=== PATIENT | female | born 1995 | race Caucasian/White ===

== ENCOUNTER → 2021-09-19 | Outpatient (CLI) | payer OTHER ==
[2021-09-19 17:08] LABS: HEMATOCRIT 34.1 % (36.0-47.0); HEMOGLOBIN 11.2 g/dl (12.0-15.5); MEAN CORPUSCULAR HGB CONC 32.8 g/dl (32.0-36.5); MEAN CORPUSCULAR VOLUME 88.3 fl (80.0-96.0); PLATELET COUNT, AUTOMATED 287 10^3/uL (150-450); RED BLOOD COUNT 3.86 10^6/uL (4.00-5.40); WHITE BLOOD COUNT 9.2 10^3/uL (4.0-10.0)
[2021-09-19 17:58] LABS: HEPATITIS C VIRUS ABY INDEX 0.1 INDEX (<0.8); HIV 1&2 SCREEN CENTAUR NEGATIVE (NEGATIVE)
[2021-09-19 18:49] LABS: GC DNA AMPLIFICATION NEGATIVE (NEGATIVE)
== END ==
LOC: M PLALAB 14:54
PROVIDERS: ATTEND Obstetrics & Gynecology
DX: Z34.91 Encounter for supervision of normal pregnancy, unspecified, first trimester (principal); Z3A.00 Weeks of gestation of pregnancy not specified

== ENCOUNTER → 2021-10-02 | Outpatient (REF) | payer OTHER | LOC: M SFHCWAGY 16:49 | PROVIDERS: ATTEND Obstetrics & Gynecology | DX: Z34.91 Encounter for supervision of normal pregnancy, unspecified, first trimester (principal) ==

== ENCOUNTER → 2021-10-20 | Outpatient (CLI) | payer OTHER | LOC: M PLALAB 14:45 | PROVIDERS: ATTEND Obstetrics & Gynecology | DX: Z34.82 Encounter for supervision of other normal pregnancy, second trimester (principal); Z3A.00 Weeks of gestation of pregnancy not specified | CPT/HCPCS: 36415; G0463 ==

== ENCOUNTER → 2021-12-04 | Outpatient (CLI) | payer OTHER | LOC: M WHC 13:23 | PROVIDERS: ATTEND Advanced Practice Midwife | DX: Z36.3 Encounter for antenatal screening for malformations (principal); Z3A.19 19 weeks gestation of pregnancy ==

== ENCOUNTER → 2022-03-16 | Outpatient (CLI) | payer OTHER | LOC: M WHC 14:20 | PROVIDERS: ATTEND Obstetrics & Gynecology | DX: O26.849 Uterine size-date discrepancy, unspecified trimester (principal); Z3A.34 34 weeks gestation of pregnancy ==

== ENCOUNTER → 2022-03-29 | Outpatient (REF) | payer OTHER | LOC: M SFHCWAGY 17:05 | PROVIDERS: ATTEND Specialist | DX: Z36.89 Encounter for other specified antenatal screening (principal) ==

== ENCOUNTER 2022-04-13 15:02 | Outpatient (CLI) | payer OTHER ==
[~2022-04-13] VITALS: Ht 167.6 cm; Wt 63.5 kg
[2022-04-13 15:17] VITALS: BP 138/89
[2022-04-13] MEDS ORDERED: PRENTAB9 PO (15:30)
[2022-04-13 15:52] VITALS: BP 130/87
[2022-04-13 16:31] LABS: CREATININE,RANDOM URINE 60.9 MG/DL; TOTAL PROTEIN,RANDOM URINE 20.1 MG/DL (0.0-12.0)
[2022-04-13 16:46] LABS: HEMATOCRIT 28.4 % (36.0-47.0); HEMOGLOBIN 9.3 g/dl (12.0-15.5); MEAN CORPUSCULAR HEMOGLOBIN 29.4 pg (27.0-33.0); MEAN CORPUSCULAR HGB CONC 32.7 g/dl (32.0-36.5); MEAN CORPUSCULAR VOLUME 89.9 fl (80.0-96.0); PLATELET COUNT, AUTOMATED 271 10^3/uL (150-450); RED BLOOD COUNT 3.16 10^6/uL (4.00-5.40); WHITE BLOOD COUNT 7.1 10^3/uL (4.0-10.0)
[2022-04-13 16:52] VITALS: BP 135/86
[2022-04-13 17:15] LABS: ALBUMIN 2.8 GM/DL (3.2-5.2); ALT/SGPT 11 U/L (12-78); BILIRUBIN,TOTAL 0.2 MG/DL (0.2-1.0); BLOOD UREA NITROGEN 11 MG/DL (7-18); CALCIUM LEVEL 8.7 MG/DL (8.5-10.1); CARBON DIOXIDE LEVEL 23 MEQ/L (21-32); CHLORIDE LEVEL 104 MEQ/L (98-107); CREATININE FOR GFR 0.62 MG/DL (0.55-1.30); GLOMERULAR FILTRATION RATE > 60.0 (>60); GLUCOSE, FASTING 73 MG/DL (70-100); LDH LACTATE DEHYDROGENASE 120 U/L (84-246); POTASSIUM SERUM 4.1 MEQ/L (3.5-5.1); SODIUM LEVEL 136 MEQ/L (136-145); TOTAL PROTEIN 6.4 GM/DL (6.4-8.2); URIC ACID 4.5 MG/DL (2.6-6.0)
== END 2022-04-13 17:34 | disposition home or self-care (01) ==
LOC: M LDO 15:02
PROVIDERS: ATTEND Obstetrics & Gynecology
DX: O16.3 Unspecified maternal hypertension, third trimester (principal); Z3A.38 38 weeks gestation of pregnancy
CPT/HCPCS: 36415; 59025; 80053; 82570; 83615; 84156; 84550; 85027; G0463

== ENCOUNTER 2022-04-20 15:06 | Inpatient (IN) | payer OTHER ==
[2022-04-20] VITALS (18 sets, daily range): BP systolic 134–174; BP diastolic 74–100
[~2022-04-20] VITALS: Ht 167.6 cm; Wt 63.0 kg
[~2022-04-20 15:06] MED LIST: PRENTAB9 PO
[2022-04-20] MEDS ORDERED: TRANEXAMIC ACID INJection 1,000 MG in NS 100 ML IV PRN (16:00)
[2022-04-20] MEDS ORDERED: CARBOPROST TROMETHAMINE 250 MCG/ML AMP IM PRN (16:00)
[2022-04-20] MEDS ORDERED: LIDOCAINE 1% MDV 20ML VIAL INFIL PRN (16:00)
[2022-04-20] MEDS ORDERED: OXYTOCIN INJ 10 UNITS/ML VIAL (J2590) IM PRN (16:00)
[2022-04-20] MEDS ORDERED: OXYTOCIN INJ 10 UNITS/ML VIAL (J2590) IV PRN (16:00)
[2022-04-20] MEDS ORDERED: METHYLERGONOVINE MALEATE 0.2 MG/ML VIAL (J2210) IM PRN (16:00)
[2022-04-20 16:51] LABS: BASO % 0.3 % (0.0-1.0); EOS # 0.1 10^3/uL (0.0-0.5); HEMATOCRIT 31.8 % (36.0-47.0); LYMPH # 1.8 10^3/uL (1.5-5.0); LYMPH % 20.4 % (24.0-44.0); MEAN CORPUSCULAR HEMOGLOBIN 28.9 pg (27.0-33.0); MEAN CORPUSCULAR HGB CONC 31.4 g/dl (32.0-36.5); MEAN CORPUSCULAR VOLUME 91.9 fl (80.0-96.0); MONO # 0.4 10^3/uL (0.0-0.8); MONO % 4.8 % (2.0-8.0); NEUTROPHILS # 6.5 10^3/uL (1.5-8.5); NEUTROPHILS % 73.2 % (36.0-66.0); PLATELET COUNT, AUTOMATED 244 10^3/uL (150-450); RED BLOOD COUNT 3.46 10^6/uL (4.00-5.40); WHITE BLOOD COUNT 8.8 10^3/uL (4.0-10.0)
[2022-04-20 17:48] LABS: TOTAL PROTEIN,RANDOM URINE 87.3 MG/DL (0.0-12.0)
[2022-04-20 18:12] LABS: ALT/SGPT 12 U/L (12-78); BILIRUBIN,TOTAL 0.1 MG/DL (0.2-1.0); CREATININE FOR GFR 0.67 MG/DL (0.55-1.30); GLOMERULAR FILTRATION RATE > 60.0 (>60); LDH LACTATE DEHYDROGENASE 164 U/L (84-246); URIC ACID 5.1 MG/DL (2.6-6.0)
[2022-04-20] MEDS ORDERED: miSOPROStol 50MCG 1/2 TABLET PO SCH (19:30)
[2022-04-20] MEDS ORDERED: SODIUM CHLORIDE 0.9% 1000ML IV ONE (19:30)
[2022-04-21] VITALS (27 sets, daily range): BP systolic 110–172; BP diastolic 69–94
[2022-04-21] MEDS ORDERED: ONDANSETRON 4MG 2ML VIAL IV PRN (01:45)
[2022-04-21] MEDS ORDERED: NALOXONE INJ 0.4MG/1ML VIAL (J2310 PER 1MG) IV PRN (01:45)
[2022-04-21] MEDS ORDERED: NS 500 ML IV PRN (01:45)
[2022-04-21] MEDS ORDERED: ePHEDrine SULFATE 25 MG/5 ML(5MG/ML) SYRINGE IVP PRN (01:45)
[2022-04-21] MEDS ORDERED: diphenhydrAMINE 50MG/ML VIAL (J1200) IV PRN (01:45)
[2022-04-21] MEDS ORDERED: EPIDURAL/PCA KEYS XX PRN (01:45)
[2022-04-21] MEDS ORDERED: FENTANYL/ROPIVACAINE/NACL BAG 100 ML EPIDURAL SCH (01:45)
[2022-04-21] MEDS ORDERED: OXYTOCIN 30 UNITS IN 0.9% NaCl 500ML IV BAG (J2590) As Ordered ONE (03:59)
[2022-04-21] MEDS ORDERED: OXYTOCIN DRIP 30 UNITS in IV 1 EA IV PRN (05:30)
[2022-04-21] MEDS ORDERED: RHOGAM 300 MCG (1500 IU) INJ (J2790) IM SCH (06:30)
[2022-04-21] MEDS ORDERED: ACETAMINOPHEN TAB 650MG DOSE (2X325MG) PO PRN (06:30)
[2022-04-21] MEDS ORDERED: IBUPROFEN 800 MG TAB PO PRN (06:30)
[2022-04-21] MEDS ORDERED: IBUPROFEN 600MG TAB PO PRN (06:30)
[2022-04-21] MEDS ORDERED: ACETAMINOPHEN 500 MG TAB PO PRN (06:30)
[2022-04-21] MEDS ORDERED: DOCUSATE SODIUM 100MG CAPSULE PO PRN (06:30)
[2022-04-21] MEDS ORDERED: METHYLERGONOVINE MALEATE 0.2 MG TAB PO PRN (06:30)
[2022-04-21 06:49] LABS: CORD GAS HCO3 A 24.6 MEQ/L; CORD GAS O2 SAT A 15.8 %; CORD GAS PCO2 A 63.6 mmHg; CORD GAS PH A 7.205 UNITS; CORD GAS PO2 A 12.4 mmHg; CORD GAS SBC A 18.3 MEQ/L; CORD GAS TCO2 A 26.5 MEQ/L
[2022-04-21 06:50] LABS: CORD GAS ABE V -5.7; CORD GAS HCO3 V 20.8 MEQ/L; CORD GAS O2 SAT V 57.7 %; CORD GAS PCO2 V 44.2 mmHg; CORD GAS PH V 7.291 UNITS; CORD GAS PO2 V 25.2 mmHg; CORD GAS SBC V 18.8 MEQ/L; CORD GAS TCO2 V 22.2 MEQ/L
[2022-04-21] MEDS: DIBUCAINE 1% OINTMENT 30GM TOP PRN (14:33)
[2022-04-21] MEDS: PRENATAL VITAMINS CHEWABLE TABLET PO SCH (14:39)
[2022-04-21] MEDS: [UNRECOGNIZED DRUG - OTHER] PO PRN ×2 (14:41→21:05)
[2022-04-22] MEDS: [UNRECOGNIZED DRUG - OTHER] PO PRN ×3 (05:36→20:02)
[2022-04-22 05:55] VITALS: BP 132/85
[2022-04-22 07:04] LABS: HEMATOCRIT 22.6 % (36.0-47.0); MEAN CORPUSCULAR HEMOGLOBIN 29.4 pg (27.0-33.0); MEAN CORPUSCULAR HGB CONC 32.3 g/dl (32.0-36.5); MEAN CORPUSCULAR VOLUME 91.1 fl (80.0-96.0); PLATELET COUNT, AUTOMATED 195 10^3/uL (150-450); RED BLOOD COUNT 2.48 10^6/uL (4.00-5.40); WHITE BLOOD COUNT 11.7 10^3/uL (4.0-10.0)
[2022-04-22 07:08] LABS: HEMOGLOBIN 7.3 g/dl (12.0-15.5)
[2022-04-22 07:27] LABS: ALT/SGPT 12 U/L (12-78); BILIRUBIN,TOTAL 0.1 MG/DL (0.2-1.0); CREATININE FOR GFR 0.68 MG/DL (0.55-1.30); GLOMERULAR FILTRATION RATE > 60.0 (>60); LDH LACTATE DEHYDROGENASE 143 U/L (84-246); URIC ACID 4.9 MG/DL (2.6-6.0)
[2022-04-22] MEDS: PRENATAL VITAMINS CHEWABLE TABLET PO SCH (09:00)
[2022-04-22 18:00] VITALS: BP 146/93
[2022-04-23] MEDS: [UNRECOGNIZED DRUG - OTHER] PO PRN (04:49)
[2022-04-23 07:00] VITALS: BP 142/89
[2022-04-23] MEDS: PRENATAL VITAMINS CHEWABLE TABLET PO SCH (07:45)
[2022-04-23 08:30] LABS: HEMATOCRIT 21.9 % (36.0-47.0); MEAN CORPUSCULAR HGB CONC 31.5 g/dl (32.0-36.5); PLATELET COUNT, AUTOMATED 214 10^3/uL (150-450); RED BLOOD COUNT 2.38 10^6/uL (4.00-5.40); WHITE BLOOD COUNT 11.5 10^3/uL (4.0-10.0)
[2022-04-23 08:33] LABS: HEMOGLOBIN 6.9 g/dl (12.0-15.5)
[2022-04-23] MEDS ORDERED: MEASLES,MUMPS,RUBELLA VACCINE INJ (MMR-II) (90707) SC.IMMUN ONE (09:00)
[2022-04-23] MEDS ORDERED: LABETALOL 200 MG TAB PO ONE (09:45)
[2022-04-23] MEDS ORDERED: NIFEdipine 30 MG XL TAB PO STA (11:14)
[2022-04-23 11:40] VITALS: BP 141/86
[2022-04-23 13:59] VITALS: BP 138/82
[2022-04-23 18:15] VITALS: BP 122/88
[2022-04-23 22:00] VITALS: BP 138/80
[2022-04-24 02:00] VITALS: BP 148/82
[2022-04-24 06:00] VITALS: BP 146/84
[2022-04-24 06:54] LABS: HEMATOCRIT 21.8 % (36.0-47.0); MEAN CORPUSCULAR HEMOGLOBIN 28.9 pg (27.0-33.0); MEAN CORPUSCULAR HGB CONC 31.2 g/dl (32.0-36.5); MEAN CORPUSCULAR VOLUME 92.8 fl (80.0-96.0); PLATELET COUNT, AUTOMATED 239 10^3/uL (150-450); RED BLOOD COUNT 2.35 10^6/uL (4.00-5.40); WHITE BLOOD COUNT 9.6 10^3/uL (4.0-10.0)
[2022-04-24 06:57] LABS: HEMOGLOBIN 6.8 g/dl (12.0-15.5)
[2022-04-24 07:12] LABS: ALT/SGPT 18 U/L (12-78); BILIRUBIN,TOTAL < 0.1 MG/DL (0.2-1.0); CREATININE FOR GFR 0.75 MG/DL (0.55-1.30); GLOMERULAR FILTRATION RATE > 60.0 (>60); LDH LACTATE DEHYDROGENASE 140 U/L (84-246); URIC ACID 4.4 MG/DL (2.6-6.0)
[2022-04-24] MEDS ORDERED: Patient Own Medication PO (08:59)
[2022-04-24] MEDS ORDERED: IBUP80TA PO (08:59)
[2022-04-24] MEDS: PRENATAL VITAMINS CHEWABLE TABLET PO SCH (09:35)
[2022-04-24 09:44] VITALS: BP 132/82
[2022-04-24] MEDS: DIBUCAINE 1% OINTMENT 30GM TOP PRN (13:34)
== END 2022-04-24 13:40 | disposition home or self-care (01) | DRG 807 ==
LOC: M LDI 15:06 → M OBS 04-21 13:00
PROVIDERS: ADMIT Obstetrics & Gynecology; ATTEND Obstetrics & Gynecology
PROC: 3E0P7GC Introduction of Other Therapeutic Substance into Female Reproductive, Via Natural or Artificial Opening (ICD-10-PCS; 2022-04-20)
PROC: 10E0XZZ Delivery of Products of Conception, External Approach (ICD-10-PCS; principal; 2022-04-21)
DX: O14.04 Mild to moderate pre-eclampsia, complicating childbirth (principal); Z37.0 Single live birth; Z3A.39 39 weeks gestation of pregnancy; Z91.018 Allergy to other foods; O99.013 Anemia complicating pregnancy, third trimester

== ENCOUNTER 2022-08-05 12:16 | Emergency (ER) | payer OTHER ==
[~2022-08-05] VITALS: Ht 167.6 cm; Wt 55.7 kg
[~2022-08-05 12:16] MED LIST changes: +IBUP80TA PO; +Patient Own Medication PO
[2022-08-05 14:23] LABS: RSV AMPLIFICATION NEGATIVE (NEGATIVE)
[2022-08-05] MEDS ORDERED: ONDA4TAB6 PO (14:42)
[2022-08-05 14:51] VITALS: BP 118/62
== END 2022-08-05 14:53 | disposition home or self-care (01) ==
LOC: M ED 12:16
DX: B34.9 Viral infection, unspecified (principal); O92.79 Other disorders of lactation; Z91.018 Allergy to other foods; Z79.899 Other long term (current) drug therapy